=== PATIENT | female | born 1990 | race Caucasian/White ===

== ENCOUNTER 2021-12-05 18:49 | Inpatient (IN) | payer MEDICAID, SELFPAY ==
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
[2021-12-05 19:18] VITALS: BMI 22.6
[2021-12-05] MEDS: CLONazepam 0.5 mg Tablet PO (20:36)
[2021-12-05] MEDS: quetiapine 100 mg Tablet 200 MG PO (20:36)
[2021-12-05 21:10] VITALS: BP 125/76; PULSE 109; RESP 20; TEMP 36.3; O2SAT 98
--- NOTE | 2021-12-05 23:47 | PC.NURSE ---
Patient is . There is question as to how far along. According to serum HCG from [facility] she would be some where from 6 - 8 weeks along. Unlike report that stated she was 21-22 weeks along. We may want to run another serum HCG for better conformation??
[2021-12-06 06:00] VITALS: BP 100/62; PULSE 84; RESP 20; TEMP 36.1; O2SAT 97
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
[2021-12-06] MEDS: CLONazepam 0.5 mg Tablet PO (09:16)
[2021-12-06] MEDS: OLANZapine 5 mg ODT PO (11:10)
[2021-12-06] MEDS: hyDROXYzine 25 mg Capsule 50 MG PO ×2 (11:11→21:39)
[2021-12-06] MEDS: sertraline 50 mg Tablet PO (11:39)
[2021-12-06 14:00] VITALS: BP 136/67; PULSE 62; RESP 20; TEMP 36.6; O2SAT 99
[2021-12-06] MEDS: haloperidol 5 mg Tablet PO (15:02)
[2021-12-06] MEDS: quetiapine 100 mg Tablet 200 MG PO (21:40)
[2021-12-06 21:46] VITALS: BP 123/68; PULSE 95; RESP 20; TEMP 36.6; O2SAT 96
--- NOTE | 2021-12-07 01:17 | PC.NURSE ---
PRN Administration Patient c/o anxiety, given PRN hydroxyzine PO given as ordered with noted effectiveness.
[2021-12-07 06:00] VITALS: BP 128/76; PULSE 79; RESP 20; TEMP 36.6; O2SAT 97
[2021-12-07] MEDS: sertraline 50 mg Tablet PO (08:21)
[2021-12-07] MEDS: CLONazepam 0.5 mg Tablet PO ×3 (08:22→21:09)
[2021-12-07] MEDS: hyDROXYzine 25 mg Capsule 50 MG PO (11:33)
[2021-12-07 14:00] VITALS: BP 126/83; PULSE 92; RESP 18; TEMP 36.6; O2SAT 98
--- NOTE | 2021-12-07 14:04 | W.PM.NPUPNS ---
Subjective NPU Subjective: Interval history: He said that she is doing better. She says that she is processing things and her mood is better. Suicidal ideation. She says that her depression is better. She feels like the medications are working. Drowsy during the day and we should decrease the Seroquel at bedtime. She is sleeping very soundly with that. Hopefully she will still do well with 100 mg. She will be going to live with her father. She is confident that will go well. Mental Status Exam MSE Comments: This is a appropriate weight female who appears approximately her stated age and is in no acute distress. She was pleasant and cooperative with the evaluation with fair to good eye contact. She is dressed in hospital scrubs with adequate grooming psychomotor activity is normal. Speech is at a regular rate and rhythm, normal volume, good articulation, not pressured. Alert, oriented X3 Attention and concentration appear to be normal. Memory is intact Mood is depressed but improved. Affect is mildly dysphoric. Thought process is logical and goal-directed. Thought content: Denies auditory and visual hallucinations. No delusions or paranoia are noted. No current suicidal ideation, and no homicidal ideation. Fund of knowledge is average. Insight and judgment appear to be impaired. Impulse control is poor. Cognition: Patient Appearance: Disheveled/Poor Hygiene Ability to Follow Directions: Good Patient Orientation (long list): Person, Place, Time, Name and Age Comprehension Ability: No Impairment Hallucination Type: None Delusion Description: Not Present Thought Process: Circumstantial and Disorganized Affect: Affect Description: Appropriate Behavior: Patient Behavior: Appropriate and Cooperative Speech Pattern: Appropriate Vitals/I&O/Wt Last Vital Signs Temp 98 F 12/07/21 06:00 Pulse 79 12/07/21 06:00 Resp 20 H 12/07/21 06:00 BP 128/76 12/07/21 06:00 Pulse Ox 97 12/07/21 06:00 Weight last 48 hrs Weight 58.06 kg Data NPU Micro: Microbiology 12/05/21 20:40 Chlamydia trachomatis ([facility]ICKIE) - Final Urine Random Neisseria gonorrhoeae ([facility]ICKIE) - Final Trichomonas vaginalis ([facility]ICKIE - Final Microbiology 12/05/21 20:40 Urine Random Chlamydia trachomatis ([facility]ICKIE) - Final 12/05/21 20:40 Urine Random Neisseria gonorrhoeae (VICKIE) - Final 12/05/21 20:40 Urine Random Trichomonas vaginalis (VICKIE - Final A&P Assessment and plan (1) Depression: Status: Acute Qualifiers: Depression Type: major depressive disorder Major depression recurrence: single episode Active/Remission status: currently active Major depression episode severity: severe Psychotic features: without psychotic features Qualified Code(s): F32.2 - Major depressive disorder, single episode, severe without psychotic features (2) Suicide attempt: Status: Acute (3) : Status: Acute Qualifiers: Weeks of gestation: 22 weeks Qualified Code(s): Z3A.22 - 22 weeks gestation of Additional A&P Information This is a 31-year-old female who is approximately 20 weeks who had a significant suicide attempt. Plan: 1. Decrease Seroquel 100 mg at bedtime and Zoloft 50 mg daily. 2. Continue every 15 minute checks for safety. 3. Encourage individual, group and milieu therapies. 4. Encourage sober living treatment after discharge at the highest level of care to which she is willing to commit. 5. We will monitor for safety for herself in the community prior to discharge. Involuntary Hold Information 96 Hour Hold: 96 Hour Involuntary Admission: No Attestations NPU Medical Necessity Statement*: Inpatient hospitalization is medically necessary and the clinically appropriate intervention at this time. We will initiate medications and make changes as indicated. Coding Level of Care Code Acute Director Workforce Management for [facility] Diagnoses Depression F32.2 Depression Type: major depressive disorder Major depression recurrence: single episode Active/Remission status: currently active Major depression episode severity: severe Psychotic features: without psychotic features Suicide attempt T14.91XA Z3A.22 Weeks of gestation: 22 weeks
[2021-12-07] MEDS: OLANZapine 5 mg ODT PO (15:03)
[2021-12-07] MEDS: blistex lip oint 7 gm Tube 1 APPLIC TOPICAL (16:01)
[2021-12-07 20:32] VITALS: RESP 17
[2021-12-07] MEDS: quetiapine 100 mg Tablet PO (21:06)
[2021-12-08 06:00] VITALS: BP 126/83; PULSE 92; RESP 17; TEMP 36.6; O2SAT 98
[2021-12-08 06:38] VITALS: BP 118/71; PULSE 78; RESP 18; TEMP 36.6; O2SAT 97
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
[2021-12-08] MEDS: sertraline 50 mg Tablet PO (09:39)
[2021-12-08 11:38] VITALS: BP 118/71; PULSE 78; RESP 18; TEMP 36.6; O2SAT 97
[2021-12-08] MEDS: hyDROXYzine 25 mg Capsule 50 MG PO (12:38)
== END 2021-12-08 13:40 | disposition home or self-care (01) | DRG 832 ==
PROVIDERS: Admitting Provider Psychiatry & Neurology Psychiatry; Visit Provider Psychiatry & Neurology Psychiatry
DX: O99.342 Other mental disorders complicating pregnancy, second trimester (principal); F32.2 Major depressive disorder, single episode, severe without psychotic features; R45.851 Suicidal ideations; O26.892 Other specified pregnancy related conditions, second trimester; R56.9 Unspecified convulsions; Z3A.22 22 weeks gestation of pregnancy; Z91.51 Personal history of suicidal behavior; Z63.0 Problems in relationship with spouse or partner; Z59.89 Other problems related to housing and economic circumstances; Z81.8 Family history of other mental and behavioral disorders
CPT/HCPCS: 81025; 87491; 87591; 87661; 97150; 97165